=== PATIENT | female | born 1965 | race Two or more races ===

== ENCOUNTER 2017-02-20 20:51 | Inpatient (IN) | payer MEDICAID ==
[~2017-02-20] VITALS: Ht 167.6 cm; Wt 66.2 kg
[~2017-02-20 20:51] MED LIST: KLONOPIN1 MG ORAL
--- NOTE | 2017-02-20 21:01 | Emergency Room Report ---
History of Present Illness General Chief Complaint: Overdose Source: EMS Present Illness HPI The patient presents with a suicide attempt. She to anywhere from 20-50 - 2 mg Klonopin one half hour to 45 minutes [facility]. The patient's was more alert when paramedics started. She has decreasing mentation. Accucheck was normal in the field. No other history is available at this time. PD plaing patient on 5150. Allergies: Coded Allergies: No Known Allergies (Unverified , 02/20/17) Patient History Limited by: medical condition Past Medical History: see triage record Social History: Denies: smoking Social History Narrative with family Last Menstrual Period: unk Reviewed Nursing Documentation: PMH: Agreed, PSxH: Agreed Nursing Documentation-PMH History Of Psychiatric Problem: Yes - ANXIETY Review of Systems All Other Systems: limited Physical Exam Vital Signs Date Time Temp Pulse Resp B/P (MAP) Pulse Ox O2 Delivery O2 Flow Rate FiO2 02/20/17 20:44 97.3 59 14 114/65 98 Room Air Sp02 EP Interpretation: reviewed, normal General Appearance: well appearing, no apparent distress, non-toxic, Stupor Head: normocephalic, atraumatic Eyes: bilateral eye PERRL, bilateral eye Scleral Injection ENT: moist mucus membranes - + gag Neck: supple Respiratory: lungs clear, normal breath sounds Cardiovascular #1: regular rate, rhythm Cardiovascular #2: 2+ radial (R) Gastrointestinal: normal inspection, non tender, no mass, non-distended, abnormal bowel sounds, decreased bowel sounds Musculoskeletal: back normal, other - flaccid, no deformity Neurologic: other - respond to pain, eyes closed, moan with pain Psychiatric: other - stupor Skin: normal inspection, warm/dry Medical Decision Making Diagnostic Impression: Primary Impression: Benzodiazepine (tranquilizer) overdose Qualified Codes: T42.4X2A - Poisoning by benzodiazepines, intentional self- harm, initial encounter Additional Impression: Suicide gesture Qualified Codes: X83.8XXA - Intentional self-harm by other specified means, initial encounter ER Course Patient presents post alleged suicide attempt with OD of clonazepam. Ddx; suicide gesture, overdose, possible polypharmacy amongst others. Emergent evaluation indicated. Patient with gag and intubation not indicated. Alleged single agent ingested and charcol and lavage not indicated. Evaluation with labs, CXR and cardiac monitoring. Repeated evaluations with possible intubation if looses gag. CXR no infiltrate. Patient slightly more responsive. Signed out to Dr. Moon. Rhythm Strip Diag. Results Rhythm: no PVC's, no ectopy, other - elizabeth Chest X-Ray Diagnostic Results Chest X-Ray Diagnostic Results : Chest X-Ray Ordered: Yes # of Views/Limited/Complete: 1 View Indication: Other EP Interpretation: Yes Interpretation: no consolidation, no effusion, no pneumothorax Impression: No acute disease Electronically Signed by: Seng Rodriguez MD Last Vital Signs Date Time Temp Pulse Resp B/P (MAP) Pulse Ox O2 Delivery O2 Flow Rate FiO2 02/21/17 00:20 97.3 54 16 96/40 96 Room Air Status: improved Seng Rodriguez M.D. Feb 20, 2017 21:01
[2017-02-20 21:25] VITALS: BP 101/61
[2017-02-20 21:26] LABS: BASOPHILS % (AUTO) 1.3 % (0.0-2.0); EOSINOPHILS % (AUTO) 1.4 % (0.0-3.0); LYMPHOCYTES % (AUTO) 54.9 % (20.0-45.0); MEAN CORPUSCULAR HEMOGLOBIN 29.7 PG (27.0-31.0); MEAN CORPUSCULAR VOLUME 90 FL (80-99); MEAN PLATELET VOLUME 6.3 FL (6.5-10.1); MONOCYTES % (AUTO) 7.1 % (1.0-10.0); NEUTROPHILS % (AUTO) 35.3 % (45.0-75.0); PLATELET COUNT 278 K/UL (150-450); RED BLOOD COUNT 4.34 M/UL (4.20-5.40); RED CELL DISTRIBUTION WIDTH 11.4 % (11.6-14.8); WHITE BLOOD COUNT 6.4 K/UL (4.8-10.8)
[2017-02-20 21:35] LABS: APPEARANCE,URINE CLEAR; KETONES,URINE NEGATIVE (NEGATIVE); LEUKOCYTE ESTERASE ,URINE NEGATIVE (NEGATIVE); NITRITE,URINE NEGATIVE (NEGATIVE); PH,URINE 6.5 (4.5-8.0); PROTEIN,URINE NEGATIVE (NEGATIVE); UROBILINOGEN,URINE NORMAL MG/DL (0.0-1.0)
[2017-02-20 21:41] LABS: ANION GAP 8 mmol/L (5-15); CARBON DIOXIDE 29 MMOL/L (21-32); CHLORIDE 106 MMOL/L (98-107); CREATININE 0.9 MG/DL (0.55-1.30); GLOMERULAR FILTRATION RATE > 60 mL/min (>60); POTASSIUM 3.3 MMOL/L (3.5-5.1); SODIUM 143 MMOL/L (136-145)
[2017-02-20 21:56] LABS: ALANINE AMINOTRANSFERASE 19 U/L (12-78); ALBUMIN/GLOBULIN RATIO 0.9 (1.0-2.7); ASPARTATE AMINO TRANSFERASE 15 U/L (15-37); TOTAL PROTEIN 7.6 G/DL (6.4-8.2)
[2017-02-20 21:57] LABS: RBC,URINE 0-2 /HPF (0 - 2); WBC,URINE 0 /HPF (0 - 2)
[2017-02-20 22:06] LABS: ACETAMINOPHEN < 2 MCG/ML (10-30); ALCOHOL < 3 mg/dL
[2017-02-20 22:28] VITALS: BP 95/76
[2017-02-21] VITALS (16 sets, daily range): BP systolic 91–130; BP diastolic 36–74
--- NOTE | 2017-02-21 11:01 | Diagnostic Imaging Report ---
Indication: Chest pain Technique: One view of the chest Comparison: none Findings: Lungs and pleural spaces are clear. Heart size is normal. Impression: No acute process This agrees with the preliminary interpretation provided by the emergency room physician
--- NOTE | 2017-02-21 12:47 | Emergency Room Report ---
Physical Exam Vital Signs Date Time Temp Pulse Resp B/P (MAP) Pulse Ox O2 Delivery O2 Flow Rate FiO2 02/20/17 20:44 97.3 59 14 114/65 98 Room Air Medical Decision Making Diagnostic Impression: Primary Impression: Benzodiazepine (tranquilizer) overdose Qualified Codes: T42.4X2A - Poisoning by benzodiazepines, intentional self- harm, initial encounter Additional Impressions: Suicide gesture Qualified Codes: X83.8XXA - Intentional self-harm by other specified means, initial encounter Bradycardia ER Course Hospital Course 52-year-old female presents ED status post overdose on benzodiazepines Clinical course Patient initially seen and evaluated by Dr Rodriguez; please see his note for full history and physical Patient placed on 5150 hold by [employer]. Patient evaluated by psychiatry Dr. Card; she agrees that patient will require psychiatric evaluation However patient is not medically cleared for psychiatric placement as heart rate is in the recent 50s. However blood pressure is maintained because of insurance patient will be transferred i. I feel this is a highly complex case requiring extensive working including EKG/Rhythm strip, Xray/CT/US, Blood/urine lab work, repeat exams while in ED, and administration of strong opiates/narcotics for pain control, admission to hospital or close patient follow up. Diagnosis - BZ overdose, suicide gesture, bradycardia Transferred in serious condition Labs Test 02/20/17 20:55 White Blood Count 6.4 K/UL (4.8-10.8) Red Blood Count 4.34 M/UL (4.20-5.40) Hemoglobin 12.9 G/DL (12.0-16.0) Hematocrit 39.2 % (37.0-47.0) Mean Corpuscular Volume 90 FL (80-99) Mean Corpuscular Hemoglobin 29.7 PG (27.0-31.0) Mean Corpuscular Hemoglobin Concent 33.0 G/DL (32.0-36.0) Red Cell Distribution Width 11.4 % (11.6-14.8) Platelet Count 278 K/UL (150-450) Mean Platelet Volume 6.3 FL (6.5-10.1) Neutrophils (%) (Auto) 35.3 % (45.0-75.0) Lymphocytes (%) (Auto) 54.9 % (20.0-45.0) Monocytes (%) (Auto) 7.1 % (1.0-10.0) Eosinophils (%) (Auto) 1.4 % (0.0-3.0) Basophils (%) (Auto) 1.3 % (0.0-2.0) Urine Color Pale yellow Urine Appearance Clear Urine pH 6.5 (4.5-8.0) Urine Specific [place] 1.010 (1.005-1.035) Urine Protein Negative (NEGATIVE) Urine Glucose (UA) Negative (NEGATIVE) Urine Ketones Negative (NEGATIVE) Urine Occult Blood 1+ (NEGATIVE) Urine Nitrite Negative (NEGATIVE) Urine Bilirubin Negative (NEGATIVE) Urine Urobilinogen Normal MG/DL (0.0-1.0) Urine Leukocyte Esterase Negative (NEGATIVE) Urine RBC 0-2 /HPF (0 - 2) Urine WBC 0 /HPF (0 - 2) Urine Squamous Epithelial Cells None /LPF (NONE/OCC) Urine Bacteria None /HPF (NONE) Sodium Level 143 MMOL/L (136-145) Potassium Level 3.3 MMOL/L (3.5-5.1) Chloride Level 106 MMOL/L (98-107) Carbon Dioxide Level 29 MMOL/L (21-32) Anion Gap 8 mmol/L (5-15) Blood Urea Nitrogen 15 mg/dL (7-18) Creatinine 0.9 MG/DL (0.55-1.30) Estimat Glomerular Filtration Rate > 60 mL/min (>60) Glucose Level 88 MG/DL (74-106) Calcium Level 9.0 MG/DL (8.5-10.1) Total Bilirubin 0.2 MG/DL (0.2-1.0) Aspartate Amino Transf (AST/SGOT) 15 U/L (15-37) Alanine Aminotransferase (ALT/SGPT) 19 U/L (12-78) Alkaline Phosphatase 64 U/L (46-116) Total Creatine Kinase 78 U/L (26-308) Troponin I 0.000 ng/mL (0.000-0.056) Total Protein 7.6 G/DL (6.4-8.2) Albumin 3.7 G/DL (3.4-5.0) Globulin 3.9 g/dL Albumin/Globulin Ratio 0.9 (1.0-2.7) Salicylates Level 1.1 ug/mL (2.8-20) Urine Opiates Screen Negative (NEGATIVE) Acetaminophen Level < 2 MCG/ML (10-30) Urine Barbiturates Screen Negative (NEGATIVE) Phencyclidine (PCP) Screen Negative (NEGATIVE) Urine Amphetamines Screen Negative (NEGATIVE) Urine Benzodiazepines Screen Negative (NEGATIVE) Urine Cocaine Screen Negative (NEGATIVE) Urine Marijuana (THC) Screen Negative (NEGATIVE) Serum Alcohol < 3 mg/dL Last Vital Signs Date Time Temp Pulse Resp B/P (MAP) Pulse Ox O2 Delivery O2 Flow Rate FiO2 02/21/17 11:30 56 21 98/58 95 Room Air 02/21/17 06:03 97.6 Status: improved Disposition: XFER SHT-TRM HOSP Condition: Serious Referrals: [facility],REFERRING (PCP) ARSH APONTE M.D. Feb 21, 2017 12:47
[2017-02-21] MEDS ORDERED: Morphine Sulfate 2mg/ml Inj IVP PRN (13:30)
[2017-02-21] MEDS ORDERED: Mylanta II UD 30ml ORAL PRN (13:30)
[2017-02-21] MEDS ORDERED: LORazepam Inj 2mg/ml 1ml IV PRN (13:30)
[2017-02-21] MEDS ORDERED: Miralax 17gm pkt ORAL PRN (21:00)
[2017-02-21] MEDS ORDERED: Zolpidem 5mg tab ORAL PRN (21:00)
[2017-02-22] VITALS: BP 108/57
[2017-02-22 04:01] VITALS: BP 112/62
[2017-02-22 07:26] LABS: MEAN CORPUSCULAR HEMOGLOBIN 30.4 PG (27.0-31.0); MEAN CORPUSCULAR HGB CONC 33.6 G/DL (32.0-36.0); MEAN CORPUSCULAR VOLUME 91 FL (80-99); MEAN PLATELET VOLUME 6.4 FL (6.5-10.1); PLATELET COUNT 202 K/UL (150-450); RED BLOOD COUNT 3.81 M/UL (4.20-5.40); RED CELL DISTRIBUTION WIDTH 11.4 % (11.6-14.8); WHITE BLOOD COUNT 3.9 K/UL (4.8-10.8)
[2017-02-22 08:09] LABS: ALANINE AMINOTRANSFERASE 21 U/L (12-78); ALBUMIN/GLOBULIN RATIO 0.9 (1.0-2.7); ANION GAP 4 mmol/L (5-15); ASPARTATE AMINO TRANSFERASE 15 U/L (15-37); CALCIUM 8.3 MG/DL (8.5-10.1); CARBON DIOXIDE 28 MMOL/L (21-32); CHLORIDE 111 MMOL/L (98-107); CHOLESTEROL 133 MG/DL (< 200); CHOLESTEROL/HDL RATIO 2.3 (3.3-4.4); CREATININE 0.7 MG/DL (0.55-1.30); GLOMERULAR FILTRATION RATE > 60 mL/min (>60); POTASSIUM 3.6 MMOL/L (3.5-5.1); SODIUM 143 MMOL/L (136-145); THYROID STIMULATING HORMONE 1.344 uiU/mL (0.358-3.740); TOTAL PROTEIN 5.8 G/DL (6.4-8.2)
[2017-02-22 08:16] VITALS: BP 122/73
[2017-02-22 08:33] LABS: BAND NEUTROPHILS % (MANUAL) 0 % (0-8); BASOPHILS % (MANUAL) 2 % (0-2); EOSINOPHILS % (MANUAL) 5 % (0-3); LYMPHOCYTES % (MANUAL) 59 % (20-45); NEUTROPHILS % (MANUAL) 29 % (45-75); PLATELET ESTIMATE ADEQUATE; PLATELET MORPHOLOGY NORMAL; TOTAL CELLS COUNTED 100
--- NOTE | 2017-02-22 11:29 | Cardiology Report ---
APPROVED REPORT EKG Measurement Heart [id number] Sinus bradycardia Otherwise normal ECG
[2017-02-22 12:01] VITALS: BP 101/57
[2017-02-22 15:47] VITALS: BP 114/51
--- NOTE | 2017-02-22 16:19 | History and Physical ---
History of Present Illness General Date patient seen: Feb 22, 2017 Reason for Hospitalization: Overdose Present Illness HPI 52 year old female presented with a suicide attempt. 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 The patient's was more alert when paramedics started. She has decreasing mentation. She was seen by psychiatrist. Pt's daughter who lives with her and she is here and wants to take her home. Allergies: Coded Allergies: PENICILLINS (Unverified Allergy, Unknown, 02/21/17) Uncoded Allergies: PCN (Allergy, Unknown, 02/21/17) Medication History Scheduled Clonazepam* (Klonopin*), 2 MG ORAL Q6H, (Reported) Patient History Healthcare decision maker Resuscitation status Full Code Advanced Directive on File No Review of Systems Constitutional: Reports: no symptoms Eye: Reports: no symptoms Physical Exam General Appearance: WD/WN, no apparent distress Lines, tubes and drains: peripheral, central line HEENT: normocephalic, atraumatic Neck: non-tender, normal alignment Respiratory/Chest: chest wall non-tender Breasts: no masses Cardiovascular/Chest: normal peripheral pulses Last 24 Hour Vital Signs Date Time Temp Pulse Resp B/P (MAP) Pulse Ox O2 Delivery O2 Flow Rate FiO2 02/22/17 15:47 97.1 59 18 114/51 100 02/22/17 12:01 98.1 60 18 101/57 98 02/22/17 12:00 72 02/22/17 08:16 97.2 60 18 122/73 95 02/22/17 08:00 70 02/22/17 04:01 98.6 62 18 112/62 96 Room Air 02/22/17 04:00 54 02/22/17 00:00 58 02/22/17 00:00 97.9 57 20 108/57 94 Room Air 02/21/17 20:00 61 02/21/17 20:00 97.7 59 20 106/57 95 02/21/17 18:13 97/60 02/21/17 17:14 97.2 56 18 98/44 97 Intake and Output 02/22/17 02/23/17 19:00 07:00 Intake Total 250 ml Balance 250 ml Intake Oral 150 ml IV Total 100 ml # Voids 3 Laboratory Tests Test 02/22/17 05:50 White Blood Count 3.9 K/UL (4.8-10.8) L Red Blood Count 3.81 M/UL (4.20-5.40) L Hemoglobin 11.6 G/DL (12.0-16.0) L Hematocrit 34.5 % (37.0-47.0) L Mean Corpuscular Volume 91 FL (80-99) Mean Corpuscular Hemoglobin 30.4 PG (27.0-31.0) Mean Corpuscular Hemoglobin Concent 33.6 G/DL (32.0-36.0) Red Cell Distribution Width 11.4 % (11.6-14.8) L Platelet Count 202 K/UL (150-450) Mean Platelet Volume 6.4 FL (6.5-10.1) L Neutrophils (%) (Auto) % (45.0-75.0) Lymphocytes (%) (Auto) % (20.0-45.0) Monocytes (%) (Auto) % (1.0-10.0) Eosinophils (%) (Auto) % (0.0-3.0) Basophils (%) (Auto) % (0.0-2.0) Differential Total Cells Counted 100 Neutrophils % (Manual) 29 % (45-75) L Lymphocytes % (Manual) 59 % (20-45) H Monocytes % (Manual) 5 % (1-10) Eosinophils % (Manual) 5 % (0-3) H Basophils % (Manual) 2 % (0-2) Band Neutrophils 0 % (0-8) Platelet Estimate Adequate Platelet Morphology Normal Red Blood Cell Morphology Normal Sodium Level 143 MMOL/L (136-145) Potassium Level 3.6 MMOL/L (3.5-5.1) Chloride Level 111 MMOL/L (98-107) H Carbon Dioxide Level 28 MMOL/L (21-32) Anion Gap 4 mmol/L (5-15) L Blood Urea Nitrogen 7 mg/dL (7-18) Creatinine 0.7 MG/DL (0.55-1.30) Estimat Glomerular Filtration Rate > 60 mL/min (>60) Glucose Level 82 MG/DL (74-106) Calcium Level 8.3 MG/DL (8.5-10.1) L Total Bilirubin 0.4 MG/DL (0.2-1.0) Aspartate Amino Transf (AST/SGOT) 15 U/L (15-37) Alanine Aminotransferase (ALT/SGPT) 21 U/L (12-78) Alkaline Phosphatase 46 U/L (46-116) Total Protein 5.8 G/DL (6.4-8.2) L Albumin 2.8 G/DL (3.4-5.0) L Globulin 3.0 g/dL Albumin/Globulin Ratio 0.9 (1.0-2.7) L Triglycerides Level 37 MG/DL (30-150) Cholesterol Level 133 MG/DL (< 200) LDL Cholesterol 71 mg/dL (<100) HDL Cholesterol 59 MG/DL (40-60) Cholesterol/HDL Ratio 2.3 (3.3-4.4) L Thyroid Stimulating Hormone (TSH) 1.344 uiU/mL (0.358-3.740) Height (Feet): 5 Height (Inches): 6.00 Weight (Pounds): 146 Medications Current Medications Medications (Trade) Dose Ordered Sig/Matthew Route PRN Reason Start Time Stop Time Status Last Admin Dose Admin Acetaminophen (Tylenol) 650 mg Q4H PRN ORAL T>100.5 02/21/17 13:30 03/23/17 13:29 Al Hydroxide/Mg Hydroxide (Mylanta II) 30 ml Q6H PRN ORAL dyspepsia 02/21/17 13:30 03/23/17 13:29 Dextrose (Dextrose 50%) STAT PRN IV Hypoglycemia 02/21/17 13:30 03/23/17 13:29 Lorazepam (Ativan 2mg/ml 1ml) 0.5 mg Q4H PRN IV For Anxiety 02/21/17 13:30 02/28/17 13:29 Morphine Sulfate (Morphine Sulfate) 1 mg Q4H PRN IVP PAIN 4-10 02/21/17 13:30 02/28/17 13:29 Ondansetron HCl (Zofran) 4 mg Q6H PRN IVP Nausea & Vomiting 02/21/17 13:30 03/23/17 13:29 Polyethylene Glycol (Miralax) 17 gm HSPRN PRN ORAL Constipation 02/21/17 21:00 03/23/17 20:59 Zolpidem Tartrate (Ambien) 5 mg HSPRN PRN ORAL Insomnia 02/21/17 21:00 02/28/17 20:59 Assessment/Plan Problem List: (1) Suicide gesture ICD Codes: X83.8XXA - Intentional self-harm by other specified means, initial encounter SNOMED: [id number] Qualifiers: Qualified Codes: X83.8XXA - Intentional self-harm by other specified means, initial encounter (2) Benzodiazepine (tranquilizer) overdose ICD Codes: T42.4X1A - Poisoning by benzodiazepines, accidental (unintentional) , initial encounter SNOMED: [id number] Qualifiers: Qualified Codes: T42.4X2A - Poisoning by benzodiazepines, intentional self- harm, initial encounter Assessment/Plan refer to a psych facility of patients REJI Hernandez Feb 22, 2017 16:19
--- NOTE | 2017-02-22 20:30 | Consultation ---
DATE OF CONSULTATION: 02/21/2017 HISTORY OF PRESENT ILLNESS: The patient was evaluated in the emergency room. This is a 52-year-old female, , who has been admitted to the hospital status post overdose on Klonopin. The patient has taken several Klonopin and wanted to end her life apparently in the context of her cheating on her going to [place] and sleeping with his escort and also her son being combative and aggressive towards her. The patient is hopeless and is presenting with depressed mood, anhedonia, worthlessness, hopelessness, and decreased energy. PAST PSYCHIATRIC HISTORY: She does states that she has history of depression and anxiety. She has been receiving Klonopin from her psychiatrist. She has never been to a psychiatric hospital. No suicide attempt. PAST MEDICAL HISTORY: None. ALLERGIES: No known drug allergies. SUBSTANCE ABUSE HISTORY: No history of illicit drug use or alcohol. MENTAL STATUS EXAMINATION: The patient is easily tearful. She has been having poor insight and judgment into her mental condition. The patient stated that she still has suicidal thoughts and wants to go to a facility. The patient is alert and oriented x4. Mood is depressed. Affect is constricted. Congruent with mood. Thought process is concrete. Thought content, positive for suicidal ideation. No plan or intention. Cognition intact. Insight and judgment is fair. ASSESSMENT: [place] I Major depressive disorder. [place] II Deferred. [place] III Status post overdose. [place] IV Low to moderate. [place] V Global assessment of functioning is 20. PLAN: 1. The patient's daughter is at bedside. The patient will be admitted to medical floor for further observation as her vitals are unstable. 2. We will continue follow and readjust the medications. Buffy Card M.D. DR: JIHAN JOB#: [id number] CC:
--- NOTE | 2017-02-22 23:30 | Progress Note ---
DATE: 02/22/2017 SUBJECTIVE: The patient is feeling depressed. Has anhedonia, worthlessness, hopelessness, decreased energy. Continues to be anxious. She still wants to go to a psychiatric unit. She stated that she is more comfortable to be discharged and be taken to a psychiatric angel by her daughter. The patient is not having suicidal ideation and stated that she would like to be discharged with medications. She received a prescription for Lexapro. Discussed the case with the social service liaison. The patient is not holdable. She would like to be discharged with family and go to a psych angel or move to a family member's house, that is appropriate. MENTAL STATUS EXAMINATION: Alert and oriented x3. Mood is depressed. Affect is constricted. Congruent mood. Thought process is concrete. Thought content, no suicidal or homicidal ideations. ASSESSMENT: AXIS I Major depressive disorder. AXIS II Deferred. AXIS III As above. AXIS IV Low. AXIS V Global assessment of functioning is 50. PLAN: 1. The patient is able to discharge, not a 5150 case. 2. She should follow up with a psychiatrist and follow up see a therapist and maybe marriage counseling. Buffy Card M.D. DR: Coleen JOB#: [id number] CC:
[2017-02-25] MEDS ORDERED: NS 500ML ONE (08:00)
--- NOTE | 2017-02-25 08:12 | Discharge Summary ---
Discharge Summary Hospital Course Date of Admission Feb 21, 2017 at 12:50 Date of Discharge Feb 22, 2017 at 19:05 Admitting Diagnosis OVERDOSE HPI Gauri Naik is a 52 year old female who was admitted on Feb 21, 2017 at 12:50 for Overdose Hospital Course dc summary #[id number] Discharge Condition Upon Discharge: stable Discharge Disposition Patient was discharged to Home (01) Discharge Diagnoses: Discharge Instructions Discharge Instructions Special Instructions I have been assigned to complete a D/C Summary on this account. I was not involved in the patient management Debbie Hollingsworth NP ([place]) Feb 25, 2017 08:12
--- NOTE | 2017-02-26 04:00 | Discharge Summary 2 SIG ---
DATE OF ADMISSION: 02/21/2017 DATE OF DISCHARGE: 02/22/2017 REASON FOR ADMISSION: 52-year-old female without any significant past medical history, was brought in by paramedics after alleged suicide attempt with Klonopin. The patient was upset about the family situation and decided to take Klonopin. In the emergency department, the patient was evaluated. Chest x-ray revealed no acute cardiopulmonary pathology. The patient was awake, but somnolent. Vital signs were stable. Laboratory workup was stable. The patient had intact gag reflex. No charcoal or lavage were indicated as per ED doctor. The patient with sinus bradycardia on monitor. The patient was admitted to the floor for medical clearance with diagnosis of suicide gesture, benzodiazepine overdose. HOSPITAL COURSE: Patient was admitted. Psychiatry evaluation was requested. Psychiatrist seen and evaluated the patient while she was still in the emergency room and diagnosed her with major depressive disorder. Psychiatrist stated that the patient was not holdable/ not a 5150 case. Per psychiatrist, the patient can be safely discharged home. Follow up with psychiatrist as an outpatient. Psychiatrist recommended psychotherapy as well as the marriage counseling. Next day, the patient was more awake and alert. Daughter was at the patient's bedside. The patient was medically stable for discharge. Due to the rapid and unexpected improvement in the patient's condition, the patient was discharged in one day. FINAL DIAGNOSES: 1. Suicide gesture. 2. Benzodiazepine overdose. 3. Major depressive disorder. DISCHARGE MEDICATION: None. DISCHARGE INSTRUCTIONS: The patient was discharged home. Follow up with outpatient psychiatrist and psychotherapy. Recommended marriage counseling. Dariusz Wade M.D. I have been assigned to dictate discharge summary on this account and I was not involved in the patient's management. Debbie MorenoAlbany Medical CenterShannon, N.P. DR: LOS JOB#: [id number] CC: DANTE
== END 2017-02-22 19:05 | disposition home or self-care (01) | DRG 812 ==
LOC: EDBD 20:51 → EMR 21:23 → 2E 02-21 12:50 → EDBEDREQSVC 02-21 12:59 → EDBEDREQ 02-21 13:02
DX: T42.4X2A Poisoning by benzodiazepines, intentional self-harm, initial encounter (principal); R00.1 Bradycardia, unspecified; Y92.009 Unspecified place in unspecified non-institutional (private) residence as the place of occurrence of the external cause; Z88.0 Allergy status to penicillin; R40.0 Somnolence; F32.9 Major depressive disorder, single episode, unspecified
CPT/HCPCS: 36415; 71010; 80053; 80061; 80307; 80329; 81003; 82550; 82962; 84443; 84484; 85007; 85025; 93005; 96360; 96361; 99285